=== PATIENT | female | born 1985 | race Caucasian/White ===

== ENCOUNTER 2017-04-12 21:04 | Emergency (ER) | payer MEDICAID ==
[2017-04-12 21:18] VITALS: RESP 18; O2SAT 99
[2017-04-12] MEDS ORDERED: KETOROLAC 15 MG/1 ML SDV IM ONE (22:33)
--- NOTE | 2017-04-12 22:42 | EDPHY ---
H & P Stated Complaint: l low back pain knee and heel pain Time Seen by Provider: 04/12/17 22:01 HPI/ROS: HPI The patient presents with left-sided lower back pain which has been present intermittently for the last 17 years, though worse since today. She thinks the pain is worse after standing in line for 2 hr and working for several hours as a massage therapist. She describes an aching pain of her left lower back which radiates down toward her medial knee and heel. She denies any numbness or tingling, weakness, bowel or bladder changes, fevers. She thinks that some stretching makes her pain better. She does not usually take medications for this but prefers holistic treatments. She has been seen by a pain management clinic and was recently approved for an MRI. She tells me that it will not be scheduled for several months and this is upsetting to her. She asks if we can do an MRI today.. REVIEW OF SYSTEMS Constitutional: No fever, no chills. Eyes: No discharge. ENT: No sore throat. Cardiovascular: No chest pain, no palpitations. Respiratory: No cough, no shortness of breath. Gastrointestinal: No abdominal pain, no vomiting. Genitourinary: No hematuria. Musculoskeletal: Positive for back pain. Skin: No rashes. Neurological: No headache. 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, single mother with 3 children PHYSICAL General Appearance: Alert, no distress Eyes: Pupils equal and round no pallor or injection ENT, Mouth: Mucous membranes moist Respiratory: There are no retractions, lungs are clear to auscultation Cardiovascular: Regular rate and rhythm Gastrointestinal: Abdomen is soft and non-tender, no masses, bowel sounds normal Back: There is paraspinal tenderness of the left lower lumbar region without any midline tenderness Neurological: A&O, 5/5 strength in the lower extremities which is symmetric, negative straight leg raise, sensation intact to light touch throughout legs Skin: Warm and dry, no rashes Musculoskeletal: Neck is supple non tender Extremities: symmetrical, full range of motion Psychiatric: Patient is oriented X 3, there is no agitation Source: Patient Exam Limitations: No limitations - Personal History LMP (Females 10-55): Over 28 Days Ago Current Tetanus/Diphtheria Vaccine: Yes Current Tetanus Diphtheria and Acellular Pertussis (TDAP): Yes - Medical/Surgical History Hx Asthma: No Hx Chronic Respiratory Disease: No Hx Diabetes: No Hx Cardiac Disease: No Hx Renal Disease: No Hx Cirrhosis: No Hx Alcoholism: No Hx HIV/AIDS: No Hx Splenectomy or Spleen Trauma: No - Social History Smoking Status: Current some day smoker Constitutional: Initial Vital Signs Temperature (C) 36.8 C 04/12/17 21:14 Heart Rate 66 04/12/17 21:14 Respiratory Rate 18 04/12/17 21:14 Blood Pressure 129/85 H 04/12/17 21:14 O2 Sat (%) 99 04/12/17 21:14 O2 Delivery Mode Room Air Allergies/Adverse Reactions: No Known Allergies Allergy (Unverified 04/12/17 21:14) Home Medications: Medication Instructions Recorded NK [No Known Home Meds] 04/12/17 Medical Decision Making Procedures: Trigger-point injection: Area of maximum tenderness identified in patient's left paraspinal region at approximately L3. This area was prepped with a ChloraPrep swab and allowed to dry. Using a 27 gauge needle, I injected a total of 10 mg of bupivacaine 0.5% without difficulty. Patient tolerated procedure well with improvement in her symptoms. Differential Diagnosis: This is a 32-year-old female with intermittent low back pain for 17 years she reports, worse today. On exam, she is tender in her left-sided paraspinals in the lumbar region. There is no midline tenderness. There are no other red flag features on history or exam. Differential diagnosis includes lumbar disc herniation with radiculopathy, spinal stenosis, less likely sciatica. In the emergency department, we will administer Toradol. I will also perform a trigger-point injection as she has had these before and they have been beneficial. She does not meet criteria for an emergent MRI. She will be discharged with follow up with her pain management clinic. - Data Points Medications Given: Discontinued Medications Diazepam (Valium 5 Mg Prepack#4) 1 btl TAKEHOME EDNOW ONE Stop: 04/12/17 23:24 Last Admin: 04/12/17 23:34 Dose: 1 btl Ketorolac Tromethamine (Toradol) 15 mg IM EDNOW ONE Stop: 04/12/17 22:34 Last Admin: 04/12/17 22:40 Dose: 15 mg Departure - Departure Disposition: Home, Routine, Self-Care Clinical Impression: Lower back pain Condition: Good Instructions: Diazepam (By mouth), Chronic Pain (ED) Additional Instructions: I recommend that you take ibuprofen 400 mg with acetaminophen 650 mg every 6 hr around the clock until your pain improves. We are going to give you a short course of Valium. You should take Valium 5 mg every 6 hr as needed for muscle spasm. If this works, you can talk to your pain management doctor about getting a prescription for it. Referrals: UNKNOWN,DOCTOR [Other] - As per Instructions
[2017-04-12] MEDS ORDERED: DIAZEPAM 5 MG PREPACK#4 BTL TAKEHOME ONE (23:23)
[2017-04-12 23:37] VITALS: BP 129/81; PULSE 75; TEMP 97.9
== END 2017-04-12 23:37 | disposition home or self-care (01) ==
DX: M54.5 Low back pain (principal); F17.200 Nicotine dependence, unspecified, uncomplicated
CPT/HCPCS: J1885